=== PATIENT | male | born 1930 | race Caucasian/White ===

== ENCOUNTER 2016-10-02 12:36 | Inpatient (IN) | payer MEDICARE ==
[~2016-10-02] VITALS: Ht 177.8 cm; Wt 84.9 kg
[~2016-10-02 12:36] MED LIST: AGGRENOX 25 MG-1 CER PO; ALPRAZOLAM0.25 M1 PO; ALPRAZOLAM0.25 MG PO; ASPIRIN ADULT L81 M3 PO; ATENOLOL25 MG PO; ATORVASTATIN CA40 M1 PO; COZAAR100 MG PO; COZAAR50 MG PO; DOXYCYCLINE100 M3 PO; FLOMAX0.4 MG PO; LASIX20 MG PO; LIPITOR40 MG PO; LISINOPRIL5 MG PO; LOSARTAN POTASS50 M1 PO; LOW DOSE ASPIRI81 MG PO; MULTI VITAMINS1 TAB PO; NORVASC2.5 MG PO; NORVASC5 MG PO; PLAVIX75 M1 PO; PROSCAR5 M1 PO; TENORMIN100 MG PO; TENORMIN25 MG PO; XANAX0.25 MG PO; ZYRTEC10 MG PO
[2016-10-02 12:42] VITALS: BP 219/109
[2016-10-02 13:12] VITALS: BP 165/93
[2016-10-02 13:16] LABS: BASO # 0.1 10*3/uL (0.0-0.1); BASO % 0.5 % (0.0-1.0); EOS # 0.1 10*3/uL (0.0-0.4); EOS % 1.3 % (1.0-4.0); HEMATOCRIT 43.5 % (42.0-52.0); HEMOGLOBIN 14.7 g/dl (14.0-18.0); LYMPH # 3.9 10*3/uL (1.3-4.4); LYMPH % 39.6 % (27.0-41.0); MEAN CELL VOLUME 99.5 fl (80.0-94.0); MEAN CORPUSCULAR HGB 33.6 pg (27.0-31.0); MEAN CORPUSCULAR HGB CONC 33.8 g/dl (33.0-37.0); MEAN PLATELET VOLUME 9.5 fl (9.6-12.3); MONO # 1.1 10*3/uL (0.1-1.0); MONO % 10.7 % (3.0-9.0); NEUT # 4.7 10*3/uL (2.3-7.9); NEUT % 47.6 % (47.0-73.0); PLATELET COUNT AUTOMATED 177 10*3/uL (130-400); RED BLOOD COUNT 4.37 10*6/uL (4.50-5.90); RED CELL DISTRI WIDTH 13.3 % (0-14.5); WHITE BLOOD COUNT 9.9 10*3/uL (4.8-10.8)
[2016-10-02 13:32] LABS: ALBUMIN 3.8 gm/dl (3.1-4.5); ALKALINE PHOSPHATASE 69 U/L (45-117); BILIRUBIN, TOTAL 1.2 mg/dl (0.2-1.0); BUN 10 mg/dl (7-24); C-REACTIVE PROTEIN 0.45 MG/DL (0-0.3); CARBON DIOXIDE 25 mmol/L (21-32); CHLORIDE 98 mmol/L (98-107); CKMB 1.8 ng/ml (0.5-3.6); CPK 156 U/L (39-308); EST GLOM FILT AFRICAN AMERICAN > 60 ml/min; GLUCOSE 130 mg/dL (65-99); MAGNESIUM 2.2 mg/dL (1.5-2.1); POTASSIUM 3.4 mmol/L (3.5-5.1); SGOT/AST 29 IU/L (3-35); SGPT/ALT 29 U/L (12-78); SODIUM 134 mmol/L (136-145); TOTAL PROTEIN 8.9 gm/dL (6.4-8.2); TROPONIN I < 0.015 ng/ml (<0.045)
[2016-10-02 13:39] VITALS: BP 126/75
[2016-10-02 13:51] LABS: PROTHROMBIN TIME 10.7 SECONDS (9.0-12.4)
[2016-10-02 14:46] LABS: BILIRUBIN NEGATIVE (NEGATIVE); BLOOD NEGATIVE (NEGATIVE); CLARITY CLEAR (CLEAR); COLOR YELLOW (YELLOW); GLUCOSE NEGATIVE (NEGATIVE); KETONE NEGATIVE (NEGATIVE); LEUKO ESTERASE NEGATIVE (NEGATIVE); NITRITE NEGATIVE (NEGATIVE); PH 7.5 (5.0-9.0); PROTEIN TRACE (NEGATIVE); UROBILINOGEN 0.2 E.U./dl (0.2-1.0)
[2016-10-02 14:56] LABS: BACTERIA TRACE; EPITHELIAL CELLS 0-2; URINE REFLEX COMMENT NO (NO); WBC 0-2 wbc/hpf (0-5)
[2016-10-02 15:11] LABS: LA>2 REFLEX 2 HR DRAW NOW
[2016-10-02 15:41] LABS: LA>2 RFLX FOLLOW UP AT 2 HRS 2.5 mmol/L (0.4-2.0)
[2016-10-02 16:00] VITALS: BP 186/94
[2016-10-02 17:10] VITALS: BP 186/94
[2016-10-02 17:33] LABS: LA>2 REFLEX 4 HR DRAW NOW
[2016-10-02] MEDS ORDERED: NORVASC2.5 MG PO (19:32)
[2016-10-02 20:00] VITALS: BP 179/85
[2016-10-03] VITALS: BP 156/85
[2016-10-03 05:52] LABS: ALBUMIN 3.5 gm/dl (3.1-4.5); ALKALINE PHOSPHATASE 64 U/L (45-117); BILIRUBIN, TOTAL 0.9 mg/dl (0.2-1.0); BUN 11 mg/dl (7-24); CARBON DIOXIDE 28 mmol/L (21-32); CHLORIDE 99 mmol/L (98-107); CHOLESTEROL 130 mg/dL (<200); EST GLOM FILT AFRICAN AMERICAN > 60 ml/min; GLUCOSE 109 mg/dL (65-99); HDL CHOLESTEROL 91 mg/dl (40-60); LDL CHOLESTEROL 31 mg/dL (9-159); PHOSPHOROUS 2.4 mg/dL (2.5-4.9); POTASSIUM 4.3 mmol/L (3.5-5.1); SGOT/AST 25 IU/L (3-35); SGPT/ALT 28 U/L (12-78); SODIUM 132 mmol/L (136-145); TOTAL PROTEIN 8.1 gm/dL (6.4-8.2); TRIGLYCERIDES 39 mg/dl (<150); VLDL CHOLESTEROL 8 mg/dL (6-40)
[2016-10-03 05:56] LABS: BASO % 0.1 % (0.0-1.0); HEMATOCRIT 43.3 % (42.0-52.0); HEMOGLOBIN 14.1 g/dl (14.0-18.0); LYMPH % 11.3 % (27.0-41.0); MEAN CELL VOLUME 99.1 fl (80.0-94.0); MEAN CORPUSCULAR HGB 32.3 pg (27.0-31.0); MEAN CORPUSCULAR HGB CONC 32.6 g/dl (33.0-37.0); MEAN PLATELET VOLUME 9.9 fl (9.6-12.3); MONO # 0.7 10*3/uL (0.1-1.0); MONO % 7.8 % (3.0-9.0); NEUT # 7.1 10*3/uL (2.3-7.9); NEUT % 80.6 % (47.0-73.0); PLATELET COUNT AUTOMATED 178 10*3/uL (130-400); RED BLOOD COUNT 4.37 10*6/uL (4.50-5.90); RED CELL DISTRI WIDTH 13.4 % (0-14.5); WHITE BLOOD COUNT 8.8 10*3/uL (4.8-10.8)
[2016-10-03 08:00] VITALS: BP 134/74
[2016-10-03 10:35] VITALS: BP 167/87
[2016-10-03 12:00] VITALS: BP 148/63
[2016-10-03 16:00] VITALS: BP 118/58
[2016-10-03 20:00] VITALS: BP 144/69
[2016-10-04] VITALS: BP 138/71
[2016-10-04 06:34] LABS: BASO % 0.2 % (0.0-1.0); EOS # 0.1 10*3/uL (0.0-0.4); EOS % 0.7 % (1.0-4.0); HEMATOCRIT 39.2 % (42.0-52.0); HEMOGLOBIN 13.2 g/dl (14.0-18.0); LYMPH # 1.7 10*3/uL (1.3-4.4); LYMPH % 19.5 % (27.0-41.0); MEAN CELL VOLUME 97.3 fl (80.0-94.0); MEAN CORPUSCULAR HGB 32.8 pg (27.0-31.0); MEAN CORPUSCULAR HGB CONC 33.7 g/dl (33.0-37.0); MEAN PLATELET VOLUME 9.4 fl (9.6-12.3); MONO # 0.9 10*3/uL (0.1-1.0); MONO % 9.8 % (3.0-9.0); NEUT % 69.5 % (47.0-73.0); PLATELET COUNT AUTOMATED 156 10*3/uL (130-400); RED BLOOD COUNT 4.03 10*6/uL (4.50-5.90); RED CELL DISTRI WIDTH 13.2 % (0-14.5); WHITE BLOOD COUNT 8.7 10*3/uL (4.8-10.8)
[2016-10-04 06:55] LABS: BUN 9 mg/dl (7-24); CARBON DIOXIDE 27 mmol/L (21-32); CHLORIDE 102 mmol/L (98-107); EST GLOM FILT AFRICAN AMERICAN > 60 ml/min; GLUCOSE 97 mg/dL (65-99); POTASSIUM 3.5 mmol/L (3.5-5.1); SODIUM 134 mmol/L (136-145)
[2016-10-04 08:00] VITALS: BP 148/84
[2016-10-04] MEDS ORDERED: NORVASC5 MG PO (11:42)
[2016-10-04 12:00] VITALS: BP 119/61
== END 2016-10-04 12:51 | disposition home or self-care (01) | DRG 392 ==
LOC: ED 12:36 → EDHOLD 16:32 → 4E 16:32
PROVIDERS: Emergency Medicine; Family Medicine; Internal Medicine
DX: K52.9 Noninfective gastroenteritis and colitis, unspecified (principal); E87.2 Acidosis; E87.1 Hypo-osmolality and hyponatremia; I16.0 Hypertensive urgency; E86.0 Dehydration; I10 Essential (primary) hypertension; N40.1 Benign prostatic hyperplasia with lower urinary tract symptoms; F41.9 Anxiety disorder, unspecified; E78.5 Hyperlipidemia, unspecified; E66.9 Obesity, unspecified; I65.29 Occlusion and stenosis of unspecified carotid artery; K57.30 Diverticulosis of large intestine without perforation or abscess without bleeding; Z86.73 Personal history of transient ischemic attack (TIA), and cerebral infarction without residual deficits; Z80.1 Family history of malignant neoplasm of trachea, bronchus and lung; Z79.82 Long term (current) use of aspirin; Z79.899 Other long term (current) drug therapy; Z68.30 Body mass index [BMI] 30.0-30.9, adult

== ENCOUNTER 2016-12-31 19:29 | Emergency (ER) | payer MEDICARE ==
[~2016-12-31] VITALS: Ht 175.2 cm; Wt 86.2 kg
--- NOTE | ~2016-12-31 | EKG ---
[place], [place] ELECTROCARDIOGRAM REPORT NAME: GALINDO SIMMONS UNIT #: [id number] ROOM: DOCTOR: BERTHA DE OLIVEIRA MD BIRTHDATE: [birth year] DOS: 12/31/2016 TIME: 2003 hours. Normal sinus rhythm premature atrial complexes. Nonspecific T-wave changes in lateral chest leads. An abnormal ECG. No previous tracing is available for comparison. BERTHA DE OLIVEIRA MD CM:EKGRPT:ELECTROCARDIOGRAM REPORT [id number] 1940 BERTHA DE OLIVEIRA MD
[2016-12-31 19:56] LABS: BASO # 0.1 10*3/uL (0.0-0.1); BASO % 0.9 % (0.0-1.0); EOS # 0.1 10*3/uL (0.0-0.4); EOS % 1.8 % (1.0-4.0); HEMATOCRIT 41.5 % (42.0-52.0); HEMOGLOBIN 13.7 g/dl (14.0-18.0); LYMPH # 2.5 10*3/uL (1.3-4.4); LYMPH % 36.2 % (27.0-41.0); MEAN CELL VOLUME 98.8 fl (80.0-94.0); MEAN CORPUSCULAR HGB 32.6 pg (27.0-31.0); MEAN PLATELET VOLUME 9.1 fl (9.6-12.3); MONO # 0.8 10*3/uL (0.1-1.0); MONO % 10.9 % (3.0-9.0); NEUT # 3.4 10*3/uL (2.3-7.9); NEUT % 49.9 % (47.0-73.0); PLATELET COUNT AUTOMATED 161 10*3/uL (130-400); RED CELL DISTRI WIDTH 13.2 % (0-14.5); WHITE BLOOD COUNT 6.9 10*3/uL (4.8-10.8)
[2016-12-31 20:16] LABS: ALBUMIN 3.6 gm/dl (3.1-4.5); ALKALINE PHOSPHATASE 56 U/L (45-117); BUN 14 mg/dl (7-24); CHLORIDE 98 mmol/L (98-107); CREATININE 1.04 mg/dL (0.70-1.30); SGOT/AST 26 IU/L (3-35); SGPT/ALT 26 U/L (12-78); SODIUM 133 mmol/L (136-145); TOTAL PROTEIN 8.3 gm/dL (6.4-8.2)
[2016-12-31 20:18] LABS: TROPONIN I < 0.015 ng/ml (<0.045)
== END 2016-12-31 20:46 | disposition home or self-care (01) ==
LOC: ED 19:29
PROVIDERS: Student in an Organized Health Care Education/Training Program
DX: I10 Essential (primary) hypertension (principal); E78.5 Hyperlipidemia, unspecified; E66.9 Obesity, unspecified; Z68.34 Body mass index [BMI] 34.0-34.9, adult; Z79.899 Other long term (current) drug therapy; Z86.73 Personal history of transient ischemic attack (TIA), and cerebral infarction without residual deficits; Z79.82 Long term (current) use of aspirin; Z87.891 Personal history of nicotine dependence; Z90.89 Acquired absence of other organs

== ENCOUNTER → 2017-06-01 | Outpatient (CLI) | payer MEDICARE | END | disposition home or self-care (01) | LOC: MRI 09:28 | DX: G45.9 Transient cerebral ischemic attack, unspecified (principal); R41.0 Disorientation, unspecified; R90.82 White matter disease, unspecified; I10 Essential (primary) hypertension ==

== ENCOUNTER 2017-06-02 12:58 | Emergency (ER) | payer MEDICARE ==
[~2017-06-02] VITALS: Ht 177.8 cm; Wt 81.6 kg
[2017-06-02 13:47] LABS: BASO % 0.7 % (0.0-1.0); EOS # 0.1 10*3/uL (0.0-0.4); EOS % 1.3 % (1.0-4.0); HEMATOCRIT 42.8 % (42.0-52.0); HEMOGLOBIN 13.6 g/dl (14.0-18.0); LYMPH # 1.7 10*3/uL (1.3-4.4); LYMPH % 28.9 % (27.0-41.0); MEAN CELL VOLUME 101.4 fl (80.0-94.0); MEAN CORPUSCULAR HGB 32.2 pg (27.0-31.0); MEAN CORPUSCULAR HGB CONC 31.8 g/dl (33.0-37.0); MEAN PLATELET VOLUME 9.7 fl (9.6-12.3); MONO # 0.6 10*3/uL (0.1-1.0); MONO % 9.5 % (3.0-9.0); NEUT # 3.6 10*3/uL (2.3-7.9); NEUT % 59.3 % (47.0-73.0); PLATELET COUNT AUTOMATED 182 10*3/uL (130-400); RED BLOOD COUNT 4.22 10*6/uL (4.50-5.90); RED CELL DISTRI WIDTH 13.5 % (0-14.5)
[2017-06-02 14:02] LABS: ALBUMIN 3.5 gm/dl (3.1-4.5); ALKALINE PHOSPHATASE 52 U/L (45-117); BUN 16 mg/dl (7-24); CHLORIDE 100 mmol/L (98-107); CREATININE 1.05 mg/dL (0.70-1.30); POTASSIUM 3.9 mmol/L (3.5-5.1); SGOT/AST 35 IU/L (3-35); SGPT/ALT 31 U/L (12-78); SODIUM 134 mmol/L (136-145); TOTAL PROTEIN 8.1 gm/dL (6.4-8.2)
[2017-06-02 14:16] LABS: BILIRUBIN NEGATIVE (NEGATIVE); BLOOD NEGATIVE (NEGATIVE); CLARITY CLEAR (CLEAR); COLOR YELLOW (YELLOW); GLUCOSE NEGATIVE (NEGATIVE); KETONE NEGATIVE (NEGATIVE); LEUKO ESTERASE NEGATIVE (NEGATIVE); NITRITE NEGATIVE (NEGATIVE); PH 5.5 (5.0-9.0); UROBILINOGEN 0.2 E.U./dl (0.2-1.0)
[2017-06-02 14:24] LABS: BACTERIA 1+; EPITHELIAL CELLS 0-2; RBC 0-2 rbc/hpf (0-2); WBC 0-2 wbc/hpf (0-5)
== END 2017-06-02 21:35 | disposition short-term general hospital (02) ==
LOC: ED 12:58
PROVIDERS: Family Medicine
DX: I63.9 Cerebral infarction, unspecified (principal); I48.91 Unspecified atrial fibrillation; I65.29 Occlusion and stenosis of unspecified carotid artery; E78.5 Hyperlipidemia, unspecified; I10 Essential (primary) hypertension; E66.9 Obesity, unspecified; Z68.34 Body mass index [BMI] 34.0-34.9, adult; Z90.89 Acquired absence of other organs; Z87.891 Personal history of nicotine dependence; Z79.82 Long term (current) use of aspirin; Z79.899 Other long term (current) drug therapy

== ENCOUNTER → 2017-07-02 | Outpatient (CLI) | payer MEDICARE ==
--- NOTE | ~2017-07-02 | SLPPOC ---
[place], [place] TUNNEL MAN PLAN OF CARE NAME: GALINDO SIMMONS UNIT #: [id number] ROOM: DOCTOR: MARTIN MENJIVAR MD Speech Language Pathology Plan of Care Page 1 1 (Initial Evaluation) of Patient Name: GALINDO SIMMONS Date: 07/02/2017 10:53 AM : 1930 SOC Date: 07/02/2017 Provider: [facility] Provider #: [id number] Treating Clinician: XAVIER Guerrero-GIULIANA Referring Physician: MARTIN MENJIVAR Medicare #: [id number] Visits From SOC: Onset Date Description Code Primary Diagnosis: 07/02/2017 A0000 NO DIAGNOSIS SENT TO [facility] Subjective Comments: Initial evaluation created to initiate the electronic medical record. Please see [employer] for details. Initial Level Goals Functional Limitation Reporting Swallowing G8996 - Swallowing functional limitation, current status at therapy episode outset and at reporting intervals Current Status: CH - 0 percent impaired, limited or restricted G8997 - Swallowing functional limitation, projected goal status, at therapy episode outset, at reporting intervals, and at discharge or to end reporting Goal Status: CH - 0 percent impaired, limited or restricted G8998 - Swallowing functional limitation, discharge status, at discharge from therapy or to end reporting Discharge Status: CH - 0 percent impaired, limited or restricted 07/02/2017 10:53:49 AM MARTIN MENJIVAR Date/Time TARIQ Guerrero Date I certify the need for these services furnished under this plan of treatment while under my care. State License #: [id number] CM:SLPPOC 1056 [facility]
--- NOTE | ~2017-07-02 | SLPIE ---
[place], [place] MEAT CARVER INITIAL EVALUATION NAME: GALINDO SIMMONS UNIT #: [id number] ROOM: DOCTOR: MARTIN MENJIVAR MD Speech Language Pathology Initial Evaluation Page 1 1 of Patient Name: GALINDO SIMMONS Date: 07/02/2017 10:53 AM : 1930 SOC Date: 07/02/2017 Provider: [facility] Provider #: [id number] Treating Clinician: XAVIER Guerrero-MEAT CARVER Referring Physician: MARTIN MENJIVAR Patient Information Address: [address] [place] [address] Physician: MARTIN MENJIVAR Physician #: [facility], [facility], Zip: [place], [place] [address] Occupation: Unknown # of Approved Visits: 0 Gender: Male Commissioning Engineer: OMAR SIMMONS Medicare #: [id number] Rehabilitation Information / History Onset Date Code Description Primary Diagnosis: 07/02/2017 A0000 NO DIAGNOSIS SENT TO [facility] Subjective Comments: Initial evaluation created to initiate the electronic medical record. Please see [facility] for details. Rehabilitation Information / History Clinical Findings Functional Goals Functional Limitation Reporting Swallowing G8996 - Swallowing functional limitation, current status at therapy episode outset and at reporting intervals Current Status: CH - 0 percent impaired, limited or restricted G8997 - Swallowing functional limitation, projected goal status, at therapy episode outset, at reporting intervals, and at discharge or to end reporting Goal Status: CH - 0 percent impaired, limited or restricted G8998 - Swallowing functional limitation, discharge status, at discharge from therapy or to end reporting Discharge Status: CH - 0 percent impaired, limited or restricted 07/02/2017 10:53:49 AM XAVIER Guerrero-MEAT CARVER Date/Time [place], [place] MEAT CARVER INITIAL EVALUATION NAME: GALINDO SIMMONS UNIT #: [id number] ROOM: DOCTOR: MARTIN MENJIVAR MD [facility] License #: [id number] CM:JENN [id number] [facility]
--- NOTE | ~2017-07-02 | SLPPN ---
[place], [place] PRINCIPAL SYSTEMS ARCHITECT PROGRESS NOTE NAME: GALINDO SIMMONS UNIT #: [id number] ROOM: DOCTOR: MARTIN MENJIVAR MD Speech Language Pathology Treatment Note Page 1 1 of Patient Name: GALINDO SIMMONS Date: 07/02/2017 10:53 AM : 1930 SOC Date: 07/02/2017 Provider: [facility] Provider #: [id number] Treating Clinician: XAVIER Guerrero-GIULIANA Referring Physician: MARTIN MENJIVAR Onset Date Description Code Primary Diagnosis: 07/02/2017 A0000 NO DIAGNOSIS SENT TO [facility] Time In: 10:00 AM Time Out: 11:00 AM PRINCIPAL SYSTEMS ARCHITECT Interventions and CPT Codes Consisted of: CPT Code Modifiers Minutes Units MOTION FLUOROSCOPY/SWALLOW 05445 60 1 Total Minutes: 60 Total Timed Minutes: 0 Total Untimed Minutes: 60 Total Units: 1 Total Timed Units: 0 Total Untimed Units: 1 07/02/2017 10:54:39 AM TARIQ Guerrero Date/Time State License #: [id number] CM:JOE [id number] 1057 IS THERAPY [facility]
--- NOTE | ~2017-07-02 | PROC NOTE ---
[place], [place] PROCEDURE NOTE NAME: GALINDO SIMMONS UNIT #: [id number] ROOM: DOCTOR: CLAUDY DOWNING BIRTHDATE: [birth year] DOS: 07/02/2017 MODIFIED BARIUM SWALLOW ORDERING PHYSICIAN: Dr. Pola Jauregui RADIOLOGIST: Dr. Ash. BACKGROUND INFORMATION: The patient is an 87-year-old male who was seen for modified barium swallow. This test was ordered to rule out aspiration due to recent pneumonia and persistent congestion. The patient denied any recent difficulty with chewing or swallowing. He currently consumes a regular diet and thin liquid. For today's assessment, he was alert and able to follow commands. Respiratory status was within normal limits. Oral peripheral examination revealed presence of natural teeth which were in good condition. Lingual, labial and buccal skills were within normal limits in terms of strength, range of motion and coordination. METHODS AND MATERIALS USED FOR THE EXAM: The patient was positioned in the lateral plane and the exam was viewed under fluoroscopy. The patient was presented with a variety of consistencies to assess swallowing skills including applesauce mixed with barium presented in half teaspoon amounts, barium-coated banana and bread given in bite size pieces and thin liquid barium taken by cup and straw. ORAL PHASE: Unremarkable. PHARYNGEAL PHASE: Unremarkable. ESOPHAGEAL PHASE: This phase of the swallow was not formally assessed during this exam. IMPRESSIONS AND RECOMMENDATIONS: Based upon assessment results, this 87-year-old patient displayed oral and pharyngeal swallowing skills within normal limits with all consistencies given. Recommend he remain on present diet. Results and recommendations were shared with the patient and his son and they verbalized understanding. Thank you very much for this referral. Should you have any questions regarding this patient, please contact the speech pathologist at [phone]. [place], [place] PROCEDURE NOTE NAME: GALINDO SIMMONS UNIT #: [id number] ROOM: DOCTOR: CLAUDY DOWNING BIRTHDATE: [birth year] CLAUDY DOWNING CM:PROCNOTE:PROCEDURE NOTE 1048 [id number] CLAUDY DOWNING
== END | disposition home or self-care (01) ==
LOC: RAD/SH 09:53
DX: I69.392 Facial weakness following cerebral infarction (principal); G45.1 Carotid artery syndrome (hemispheric)

== ENCOUNTER 2017-12-05 20:44 | Emergency (ER) | payer MEDICARE ==
[~2017-12-05] VITALS: Ht 175.2 cm; Wt 93.0 kg
--- NOTE | ~2017-12-05 | EKG ---
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
[2017-12-05 21:40] LABS: BASO # 0.1 10*3/uL (0.0-0.1); BASO % 0.7 % (0.0-1.0); EOS # 0.1 10*3/uL (0.0-0.4); EOS % 1.6 % (1.0-4.0); HEMATOCRIT 36.3 % (42.0-52.0); LYMPH # 1.3 10*3/uL (1.3-4.4); LYMPH % 18.1 % (27.0-41.0); MEAN CELL VOLUME 97.3 fl (80.0-94.0); MEAN CORPUSCULAR HGB 32.2 pg (27.0-31.0); MEAN CORPUSCULAR HGB CONC 33.1 g/dl (33.0-37.0); MEAN PLATELET VOLUME 9.4 fl (9.6-12.3); MONO # 0.5 10*3/uL (0.1-1.0); NEUT # 5.3 10*3/uL (2.3-7.9); NEUT % 72.3 % (47.0-73.0); PLATELET COUNT AUTOMATED 174 10*3/uL (130-400); RED BLOOD COUNT 3.73 10*6/uL (4.50-5.90); RED CELL DISTRI WIDTH 14.6 % (0-14.5); WHITE BLOOD COUNT 7.3 10*3/uL (4.8-10.8)
[2017-12-05 21:53] LABS: ALBUMIN 2.9 gm/dl (3.1-4.5); ALKALINE PHOSPHATASE 72 U/L (45-117); BUN 13 mg/dl (7-24); CHLORIDE 97 mmol/L (98-107); CREATININE 1.27 mg/dL (0.70-1.30); SGOT/AST 36 IU/L (3-35); SGPT/ALT 40 U/L (12-78); SODIUM 132 mmol/L (136-145); TOTAL PROTEIN 7.9 gm/dL (6.4-8.2)
[2017-12-05] MEDS ORDERED: FEROSUL325 MG PO (22:31)
== END 2017-12-06 00:23 | disposition home or self-care (01) ==
LOC: ED 20:44
PROVIDERS: Emergency Medicine
DX: R53.1 Weakness (principal); R20.2 Paresthesia of skin; E78.5 Hyperlipidemia, unspecified; I10 Essential (primary) hypertension; E66.9 Obesity, unspecified; Z68.34 Body mass index [BMI] 34.0-34.9, adult; Z79.899 Other long term (current) drug therapy; Z86.73 Personal history of transient ischemic attack (TIA), and cerebral infarction without residual deficits; Z87.891 Personal history of nicotine dependence

== ENCOUNTER → 2018-05-06 | Outpatient (CLI) | payer MEDICARE ==
[~2018-05-06] MED LIST changes: +FEROSUL325 MG PO
== END | disposition home or self-care (01) ==
LOC: US 03:34
DX: N40.1 Benign prostatic hyperplasia with lower urinary tract symptoms (principal); I10 Essential (primary) hypertension; Z85.51 Personal history of malignant neoplasm of bladder

== ENCOUNTER 2018-08-01 00:08 | Emergency (ER) | payer MEDICARE ==
[~2018-08-01] VITALS: Wt 92.2 kg
--- NOTE | ~2018-08-01 | EKG ---
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
[2018-08-01 01:34] LABS: BASO % 0.2 % (0.0-1.0); EOS % 0.3 % (1.0-4.0); HEMATOCRIT 40.9 % (42.0-52.0); HEMOGLOBIN 13.7 g/dl (14.0-18.0); LYMPH # 1.5 10*3/uL (1.3-4.4); LYMPH % 11.3 % (27.0-41.0); MEAN CELL VOLUME 97.6 fl (80.0-94.0); MEAN CORPUSCULAR HGB 32.7 pg (27.0-31.0); MEAN CORPUSCULAR HGB CONC 33.5 g/dl (33.0-37.0); MEAN PLATELET VOLUME 9.7 fl (9.6-12.3); MONO # 1.4 10*3/uL (0.1-1.0); MONO % 10.6 % (3.0-9.0); NEUT # 9.9 10*3/uL (2.3-7.9); NEUT % 77.3 % (47.0-73.0); PLATELET COUNT AUTOMATED 118 10*3/uL (130-400); RED BLOOD COUNT 4.19 10*6/uL (4.50-5.90); RED CELL DISTRI WIDTH 13.9 % (0-14.5); WHITE BLOOD COUNT 12.9 10*3/uL (4.8-10.8)
[2018-08-01 01:46] LABS: ACT PARTIAL THROMBO TIME 32.5 SECONDS (20.0-32.1); INTERNATIONAL NORM RATIO 1.1 (2.0-3.5)
[2018-08-01 01:47] LABS: BUN 14 mg/dl (7-24); CHLORIDE 94 mmol/L (98-107); CREATININE 0.96 mg/dL (0.70-1.30); POTASSIUM 3.4 mmol/L (3.5-5.1); SODIUM 129 mmol/L (136-145)
== END 2018-08-01 04:40 | disposition short-term general hospital (02) ==
LOC: ED 00:08
PROVIDERS: Nurse Practitioner
DX: S02.2XXA Fracture of nasal bones, initial encounter for closed fracture (principal); S01.21XA Laceration without foreign body of nose, initial encounter; S80.02XA Contusion of left knee, initial encounter; S80.01XA Contusion of right knee, initial encounter; Z79.899 Other long term (current) drug therapy; Z87.891 Personal history of nicotine dependence; W01.10XA Fall on same level from slipping, tripping and stumbling with subsequent striking against unspecified object, initial encounter; Y93.89 Activity, other specified; Y92.89 Other specified places as the place of occurrence of the external cause; Y99.8 Other external cause status

== ENCOUNTER → 2019-02-01 | Outpatient (CLI) | payer MEDICARE | END | disposition home or self-care (01) | LOC: RAD 01:21 | DX: J34.89 Other specified disorders of nose and nasal sinuses (principal) ==

== ENCOUNTER → 2019-10-10 | Outpatient (CLI) | payer MEDICARE | END | disposition home or self-care (01) | LOC: US 00:21 | DX: I25.10 Atherosclerotic heart disease of native coronary artery without angina pectoris (principal); I70.202 Unspecified atherosclerosis of native arteries of extremities, left leg; R09.89 Other specified symptoms and signs involving the circulatory and respiratory systems ==

== ENCOUNTER 2020-10-20 15:58 | Inpatient (IN) | payer MEDICARE ==
[~2020-10-20] VITALS: Ht 177.8 cm; Wt 94.9 kg
[2020-10-20 16:08] VITALS: BP 164/62
[2020-10-20] MEDS ORDERED: CETIRIZINE HYDR10 MG PO (16:34)
[2020-10-20] MEDS ORDERED: ELIQUIS2.5 M1 PO (16:35)
[2020-10-20] MEDS ORDERED: POTASSIUM CHLO10 ME4 PO (16:36)
[2020-10-20] MEDS ORDERED: FUROSEMIDE40 MG PO (16:36)
[2020-10-20] MEDS ORDERED: RIVASTIGMINE1 EACH T (16:37)
[2020-10-20] MEDS ORDERED: QUETIAPINE FUMA25 MG PO (16:38)
[2020-10-20] MEDS ORDERED: ASPIRIN CHEWABL81 MG PO (16:46)
[2020-10-20] MEDS ORDERED: VITAMIN B-121000 MC2 PO (16:47)
[2020-10-20] MEDS ORDERED: VITAMIN C250 M2 PO (16:48)
[2020-10-20] MEDS ORDERED: VITAMIN D3125 MCG PO (16:49)
[2020-10-20 17:05] LABS: BASO % 0.6 % (0.0-1.0); EOS # 0.1 10*3/uL (0.0-0.4); EOS % 2.2 % (1.0-4.0); HEMATOCRIT 38.8 % (42.0-52.0); LYMPH # 1.9 10*3/uL (1.3-4.4); LYMPH % 29.5 % (27.0-41.0); MEAN CELL VOLUME 99.2 fl (80.0-94.0); MEAN CORPUSCULAR HGB CONC 32.2 g/dl (33.0-37.0); MEAN PLATELET VOLUME 9.6 fl (9.6-12.3); MONO # 0.8 10*3/uL (0.1-1.0); MONO % 12.6 % (3.0-9.0); NEUT # 3.6 10*3/uL (2.3-7.9); NEUT % 54.9 % (47.0-73.0); PLATELET COUNT AUTOMATED 126 10*3/uL (130-400); RED BLOOD COUNT 3.91 10*6/uL (4.50-5.90); RED CELL DISTRI WIDTH 14.9 % (0-14.5); WHITE BLOOD COUNT 6.5 10*3/uL (4.8-10.8)
[2020-10-20 17:21] LABS: ALBUMIN 2.8 gm/dl (3.1-4.5); ALKALINE PHOSPHATASE 81 U/L (45-117); BUN 23 mg/dl (7-24); CHLORIDE 99 mmol/L (98-107); SGOT/AST 34 IU/L (3-35); SGPT/ALT 41 U/L (12-78); SODIUM 136 mmol/L (136-145); TOTAL PROTEIN 8.1 gm/dL (6.4-8.2)
[2020-10-20 17:22] LABS: TROPONIN I < 0.015 ng/ml (<0.045)
[2020-10-20 17:27] LABS: BILIRUBIN Negative (Negative); BLOOD Negative (Negative); CLARITY Clear (Clear); COLOR Yellow (Yellow); GLUCOSE Negative (Negative); KETONE Negative (Negative); LEUKO ESTERASE Negative (Negative); NITRITE Negative (Negative)
[2020-10-20 17:40] LABS: BACTERIA TRACE; EPITHELIAL CELLS 0-2; HYALINE CAST 0-2; WBC 0-2 wbc/hpf (0-5)
[2020-10-20 21:05] VITALS: BP 175/89
[2020-10-20 21:30] VITALS: BP 154/82
[2020-10-20] MEDS ORDERED: EXELON1 EAC1 T (23:24)
[2020-10-20] MEDS ORDERED: DULCOLAX STOOL100 M1 PO (23:25)
[2020-10-21] VITALS: BP 142/70; BP 179/90
[2020-10-21 06:30] LABS: BASO # 0.1 10*3/uL (0.0-0.1); BASO % 0.6 % (0.0-1.0); EOS # 0.1 10*3/uL (0.0-0.4); EOS % 1.6 % (1.0-4.0); HEMATOCRIT 36.6 % (42.0-52.0); LYMPH # 1.5 10*3/uL (1.3-4.4); LYMPH % 19.7 % (27.0-41.0); MEAN CELL VOLUME 97.6 fl (80.0-94.0); MEAN CORPUSCULAR HGB 31.2 pg (27.0-31.0); MEAN PLATELET VOLUME 10.1 fl (9.6-12.3); MONO # 0.8 10*3/uL (0.1-1.0); MONO % 10.3 % (3.0-9.0); NEUT # 5.2 10*3/uL (2.3-7.9); NEUT % 67.5 % (47.0-73.0); PLATELET COUNT AUTOMATED 124 10*3/uL (130-400); RED BLOOD COUNT 3.75 10*6/uL (4.50-5.90); WHITE BLOOD COUNT 7.7 10*3/uL (4.8-10.8)
[2020-10-21 06:56] LABS: ALBUMIN 2.6 gm/dl (3.1-4.5); BUN 18 mg/dl (7-24); CHLORIDE 101 mmol/L (98-107); POTASSIUM 3.4 mmol/L (3.5-5.1); SODIUM 135 mmol/L (136-145)
[2020-10-21 06:59] LABS: ALKALINE PHOSPHATASE 77 U/L (45-117); CREATININE 0.84 mg/dL (0.70-1.30); SGOT/AST 28 IU/L (3-35); SGPT/ALT 35 U/L (12-78); TOTAL PROTEIN 7.2 gm/dL (6.4-8.2)
[2020-10-21 07:54] LABS: VITAMIN D, 25-HYDROXY 59.8 ng/mL (30-100)
[2020-10-21 08:00] VITALS: BP 152/75
[2020-10-21 12:00] VITALS: BP 148/78
[2020-10-21 16:00] VITALS: BP 141/63
[2020-10-21 20:00] VITALS: BP 169/91
[2020-10-22] VITALS: BP 141/82
[2020-10-22 08:00] VITALS: BP 133/81
[2020-10-22 12:00] VITALS: BP 136/82
[2020-10-22 16:00] VITALS: BP 118/67
[2020-10-22 16:18] VITALS: BP 140/76
[2020-10-22 20:00] VITALS: BP 124/61
[2020-10-23] VITALS: BP 188/94
[2020-10-23 08:00] VITALS: BP 188/94
[2020-10-23 12:00] VITALS: BP 129/65
[2020-10-23 16:00] VITALS: BP 142/75
[2020-10-23 20:00] VITALS: BP 178/90
[2020-10-24] VITALS: BP 148/80
[2020-10-24 08:00] VITALS: BP 150/73
[2020-10-24 12:00] VITALS: BP 155/65
[2020-10-24 16:00] VITALS: BP 145/63
[2020-10-24 20:00] VITALS: BP 138/74
[2020-10-25] VITALS: BP 158/79
[2020-10-25 08:00] VITALS: BP 154/85
[2020-10-25 12:00] VITALS: BP 135/88
== END 2020-10-25 17:59 | disposition hospice, inpatient (51) | DRG 726 ==
LOC: ED 15:58 → 4E 18:40 → EDHOLD 18:40 → 4E 20:31
PROVIDERS: Emergency Medicine; Hospitalist; ADMIT Internal Medicine; ATTEND Internal Medicine
DX: N40.1 Benign prostatic hyperplasia with lower urinary tract symptoms (principal); F03.91 Unspecified dementia, unspecified severity, with behavioral disturbance; E87.1 Hypo-osmolality and hyponatremia; E44.0 Moderate protein-calorie malnutrition; R33.8 Other retention of urine; I11.0 Hypertensive heart disease with heart failure; I48.0 Paroxysmal atrial fibrillation; I50.9 Heart failure, unspecified; E78.5 Hyperlipidemia, unspecified; Z66 Do not resuscitate; Z51.5 Encounter for palliative care; D64.9 Anemia, unspecified; Z20.822 Contact with and (suspected) exposure to COVID-19; R73.9 Hyperglycemia, unspecified; E80.6 Other disorders of bilirubin metabolism; E87.6 Hypokalemia; Z87.891 Personal history of nicotine dependence; Z80.1 Family history of malignant neoplasm of trachea, bronchus and lung; Z88.1 Allergy status to other antibiotic agents; Z88.8 Allergy status to other drugs, medicaments and biological substances; Z86.73 Personal history of transient ischemic attack (TIA), and cerebral infarction without residual deficits; Z79.82 Long term (current) use of aspirin; Z79.899 Other long term (current) drug therapy; Z68.30 Body mass index [BMI] 30.0-30.9, adult